=== PATIENT | male | born 1985 | race Caucasian/White ===

== ENCOUNTER 2024-02-19 20:05 | Emergency (ER) | payer SELFPAY ==
[~2024-02-19] VITALS: Ht 172.7 cm; Wt 79.0 kg
[2024-02-19 20:30] VITALS: O2SAT 100
[2024-02-19] MEDS: ACETAMINOPHEN 500MG TABLET PO ONE (21:45)
[2024-02-19] MEDS: KETOROLAC 30MG/ML VIAL IM ONE (22:00)
[2024-02-19] MEDS ORDERED: IBUP-2028 MT (22:47)
[2024-02-19 23:10] VITALS: BP 134/66; PULSE 98; RESP 19; TEMP 36.66960; O2SAT 100
== END 2024-02-19 23:00 | disposition home or self-care (01) ==
LOC: ER 20:05
DX: M79.645 Pain in left finger(s) (principal); W31.89XA Contact with other specified machinery, initial encounter; Y93.89 Activity, other specified; Y92.89 Other specified places as the place of occurrence of the external cause; Y99.8 Other external cause status
CPT/HCPCS: 99283; 73130; 96372; J1885